=== PATIENT | male | born 1950 | race Caucasian/White ===

== ENCOUNTER 2021-10-23 09:32 | Inpatient (IN) | payer BC ==
[~2021-10-23] VITALS: Ht 175.3 cm; Wt 95.3 kg
[2021-10-23 09:36] VITALS: BP_SYST 104
[2021-10-23 10:27] LABS: BILIRUBIN,URINE NEGATIVE (NEGATIVE); BLOOD, URINE NEGATIVE (NEGATIVE); CLARITY/URINE CLEAR (CLEAR); COLOR,URINE YELLOW (YELLOW); GLUCOSE,URINE NEGATIVE (NEGATIVE); KETONES,URINE NEGATIVE (NEGATIVE); LEUKOCYTE ESTERASE ,URINE NEGATIVE (NEGATIVE); NITRITE, URINE NEGATIVE (NEGATIVE); PH,URINE 5.5 (5.0-8.0); PROTEIN URINE NEGATIVE (NEGATIVE); UROBILINOGEN,URINE 0.2 (0.2-1.0)
[2021-10-23 10:32] LABS: CALCIUM 9.3 mg/dL (8.4-11.0); CHLORIDE 86 mmol/L (98-107); CREATININE 0.93 mg/dL (0.55-1.30); GLUCOSE 99 mg/dL (70-99); SODIUM SERUM 138 mmol/L (136-145); UREA NITROGEN, BLOOD 19 mg/dL (8-21)
[2021-10-23 10:40] LABS: BARBITURATE, URINE NEGATIVE (NEG <=200); BENZODIAZEPINE, URINE POSITIVE (NEG <=150); CANNABINOID, URINE NEGATIVE (NEG <=50); COCAINE, URINE NEGATIVE (NEG <=150); METHAMPHETAMINES SCREEN,URINE NEGATIVE (NEG <=500); OPIATE, URINE NEGATIVE (NEG <=100); PHENCYCLIDINE SCREEN,URINE NEGATIVE (NEG <=25); UR TRICYCLIC ANTIDEPRESSANTS NEGATIVE (NEG <=300); URINE AMPHETAMINE NEGATIVE (NEG <=500); URINE METHADONE NEGATIVE (NEG <=200); URINE OXYCODONE SCREEN NEGATIVE (NEG <=100); URINE PROPOXYPHENE SCREEN NEGATIVE (NEG <=300)
[2021-10-23 10:42] LABS: BASOPHILS % (AUTO) 0.4 % (0.0-2.0); EOSINOPHILS # (AUTO) 0.1 K/uL (0.0-0.4); EOSINOPHILS % (AUTO) 1.3 % (0.0-4.0); HEMATOCRIT 31.5 % (36-54); HEMOGLOBIN 10.4 g/dL (14.0-18.0); LYMPHOCYTES # (AUTO) 1.6 K/uL (1.0-5.5); MEAN CORPUSCULAR HEMOGLOBIN 25 pg (27-31); MEAN CORPUSCULAR HGB CONC 33 % (32-36); MEAN CORPUSCULAR VOLUME 77 fL (79.0-98.0); MONOCYTES # (AUTO) 0.5 K/uL (0.0-1.0); MONOCYTES % (AUTO) 4.9 % (1.7-9.3); NEUTROPHILS # (AUTO) 7.4 K/uL (1.8-7.7); NEUTROPHILS % (AUTO) 76.4 % (40.0-70.0); PLATELET COUNT (AUTO) 366 K/uL (130-430); RED CELL DISTRIBUTION WIDTH 19.1 % (9.0-15.0); WHITE BLOOD COUNT (AUTO) 9.7 K/uL (4.8-10.8)
[2021-10-23 10:44] LABS: ALANINE AMINOTRANSFERASE 12 U/L (12-78); ASPARTATE AMINOTRANSFERASE 20 U/L (10-37); TOTAL BILIRUBIN 0.5 mg/dL (0.0-1.0)
[2021-10-23 10:49] LABS: ANION GAP -4 (5-15); GFR AFRICAN AMERICAN 103 mL/min (>90); POTASSIUM 2.7 mmol/L (3.5-5.1)
[2021-10-23] MEDS ORDERED: POTASSIUM CHLORIDE 20 MEQ/PKT PACKET PO ONE (11:00)
[2021-10-23] MEDS ORDERED: FUROSEMIDE 40 MG/4 ML VIAL IVP ONE (12:00)
[2021-10-23] MEDS ORDERED: GABA800T PO (12:14)
[2021-10-23] MEDS ORDERED: DULO60CA42 PO (12:14)
[2021-10-23] MEDS ORDERED: ASPI-1155 PO (12:14)
[2021-10-23] MEDS ORDERED: AMLO5TAB4 PO (12:14)
[2021-10-23] MEDS ORDERED: BUME1TAB9 PO (12:14)
[2021-10-23] MEDS ORDERED: LIP40 PO (12:14)
[2021-10-23] MEDS ORDERED: [UNRECOGNIZED DRUG - CODE] PO (12:14)
[2021-10-23] MEDS ORDERED: DDA.1 PO (12:14)
[2021-10-23] MEDS ORDERED: CARV6.2554 PO (12:14)
[2021-10-23] MEDS ORDERED: MULT-1198 PO (12:14)
[2021-10-23 15:03] VITALS: BP_SYST 140
[2021-10-23 16:03] VITALS: BP_SYST 142
[2021-10-23 20:00] VITALS: BP_SYST 118
[2021-10-24] MEDS: FUROSEMIDE 20 MG/2 ML VIAL IVP SCH ×3 (05:24→21:58)
[2021-10-24 08:00] VITALS: BP_SYST 123
[2021-10-24] MEDS: DESMOPRESSIN 0.1 MG TAB (DDAVP) PO SCH ×2 (09:56→21:59)
[2021-10-24] MEDS: GABAPENTIN 400 MG CAPSULE PO SCH ×2 (09:57→21:59)
[2021-10-24] MEDS: amLODIPine BESYLATE 5 MG TABLET PO SCH (09:57)
[2021-10-24] MEDS: DULoxetine HCL 30 MG CAPSULE.DR (CYMBALTA) PO SCH (09:57)
[2021-10-24] MEDS: ATORVASTATIN 20 MG TABLET PO SCH (09:58)
[2021-10-24] MEDS: ASPIRIN 81 MG TAB.CHEW PO SCH (09:58)
[2021-10-24] MEDS: CARVEDILOL 6.25 MG TABLET (COREG) PO SCH (09:59)
[2021-10-24] MEDS: BUMETANIDE 1 MG TABLET PO SCH (10:00)
[2021-10-24] MEDS ORDERED: ALBUTEROL SULFATE 0.083% 2.5 MG/3 ML VIAL.NEB INH PRN (10:45)
[2021-10-24] MEDS ORDERED: LORazepam 2 MG/ML VIAL IVP PRN ×2 (10:45)
[2021-10-24] MEDS ORDERED: ONDANSETRON HCL 4 MG/2 ML VIAL IVP PRN ×2 (10:45)
[2021-10-24] MEDS ORDERED: IPRATROPIUM BROM 0.5 MG/2.5 ML VIAL.NEB (ATROVENT) INH PRN (10:45)
[2021-10-24 10:56] VITALS: BP_SYST 123
[2021-10-24 12:30] VITALS: BP_SYST 110
[2021-10-24] MEDS ORDERED: NORMAL SALINE 5 ML DISP.SYRIN IVF SCH (14:00)
[2021-10-24] MEDS: NORMAL SALINE 5 ML DISP.SYRIN IVF SCH ×2 (14:11→21:59)
[2021-10-24 16:08] VITALS: BP_SYST 123
[2021-10-24 20:00] VITALS: BP_SYST 132
[2021-10-25] MEDS: FUROSEMIDE 20 MG/2 ML VIAL IVP SCH ×2 (05:24→14:55)
[2021-10-25] MEDS: NORMAL SALINE 5 ML DISP.SYRIN IVF SCH ×3 (05:24→22:07)
[2021-10-25 08:00] VITALS: BP_SYST 102
[2021-10-25] MEDS: ASPIRIN 81 MG TAB.CHEW PO SCH (08:50)
[2021-10-25] MEDS: DESMOPRESSIN 0.1 MG TAB (DDAVP) PO SCH ×2 (08:50→20:46)
[2021-10-25] MEDS: CARVEDILOL 6.25 MG TABLET (COREG) PO SCH (08:50)
[2021-10-25] MEDS: GABAPENTIN 400 MG CAPSULE PO SCH ×2 (08:51→20:46)
[2021-10-25] MEDS: BUMETANIDE 1 MG TABLET PO SCH (08:51)
[2021-10-25] MEDS: amLODIPine BESYLATE 5 MG TABLET PO SCH (08:51)
[2021-10-25] MEDS: DULoxetine HCL 30 MG CAPSULE.DR (CYMBALTA) PO SCH (08:51)
[2021-10-25] MEDS: ATORVASTATIN 20 MG TABLET PO SCH (09:03)
[2021-10-25 09:18] LABS: ALBUMIN 1.9 g/dL (3.4-4.8); CALCIUM 9.1 mg/dL (8.4-11.0); CREATININE 0.81 mg/dL (0.55-1.30); PHOSPHORUS 3.5 mg/dL (2.7-4.5); TOTAL BILIRUBIN 0.3 mg/dL (0.0-1.0)
[2021-10-25 09:23] LABS: BASOPHILS % (AUTO) 0.2 % (0.0-2.0); EOSINOPHILS # (AUTO) 0.1 K/uL (0.0-0.4); EOSINOPHILS % (AUTO) 0.9 % (0.0-4.0); HEMATOCRIT 32.3 % (36-54); HEMOGLOBIN 10.5 g/dL (14.0-18.0); LYMPHOCYTES # (AUTO) 1.7 K/uL (1.0-5.5); LYMPHOCYTES % (AUTO) 17.6 % (20.5-51.5); MEAN CORPUSCULAR HEMOGLOBIN 25 pg (27-31); MEAN CORPUSCULAR HGB CONC 33 % (32-36); MEAN CORPUSCULAR VOLUME 78 fL (79.0-98.0); MONOCYTES # (AUTO) 0.7 K/uL (0.0-1.0); MONOCYTES % (AUTO) 6.9 % (1.7-9.3); NEUTROPHILS # (AUTO) 7.1 K/uL (1.8-7.7); NEUTROPHILS % (AUTO) 74.4 % (40.0-70.0); PLATELET COUNT (AUTO) 375 K/uL (130-430); RED BLOOD CELL COUNT(AUTO) 4.15 MIL/uL (4.2-6.2); RED CELL DISTRIBUTION WIDTH 19.3 % (9.0-15.0); WHITE BLOOD COUNT (AUTO) 9.6 K/uL (4.8-10.8)
[2021-10-25 09:33] LABS: POTASSIUM 1.9 mmol/L (3.5-5.1)
[2021-10-25] MEDS ORDERED: KCL 40 mEq in 100 mL (PREMIX) 100 ML IV ONE ×2 (10:15→20:30)
[2021-10-25] MEDS ORDERED: POTASSIUM CHLORIDE 40 MEQ in NS 250 ML IV ONE (11:00)
[2021-10-25 12:00] VITALS: BP_SYST 107
[2021-10-25 16:00] VITALS: BP_SYST 126
[2021-10-25] MEDS ORDERED: POTASSIUM CHLORIDE 20 MEQ/PKT PACKET PO ONE (16:45)
[2021-10-25 19:29] LABS: CALCIUM 8.6 mg/dL (8.4-11.0); CHLORIDE 87 mmol/L (98-107); CREATININE 0.98 mg/dL (0.55-1.30); GLUCOSE 118 mg/dL (70-99); SODIUM SERUM 137 mmol/L (136-145); UREA NITROGEN, BLOOD 17 mg/dL (8-21)
[2021-10-25 19:33] LABS: GFR AFRICAN AMERICAN 97 mL/min (>90)
[2021-10-25 19:37] LABS: POTASSIUM 2.8 mmol/L (3.5-5.1)
[2021-10-25 19:38] LABS: ANION GAP < 3 (5-15)
[2021-10-25 20:00] VITALS: BP_SYST 123
[2021-10-26] VITALS: BP_SYST 123
[2021-10-26] MEDS: NORMAL SALINE 5 ML DISP.SYRIN IVF SCH ×3 (05:10→21:00)
[2021-10-26 07:35] LABS: BASOPHILS # (AUTO) 0.2 K/uL (0.0-0.2); BASOPHILS % (AUTO) 2.3 % (0.0-2.0); EOSINOPHILS # (AUTO) 0.1 K/uL (0.0-0.4); EOSINOPHILS % (AUTO) 1.3 % (0.0-4.0); HEMATOCRIT 32.4 % (36-54); HEMOGLOBIN 10.6 g/dL (14.0-18.0); LYMPHOCYTES # (AUTO) 2.1 K/uL (1.0-5.5); LYMPHOCYTES % (AUTO) 20.3 % (20.5-51.5); MEAN CORPUSCULAR HEMOGLOBIN 25 pg (27-31); MEAN CORPUSCULAR HGB CONC 33 % (32-36); MEAN CORPUSCULAR VOLUME 77 fL (79.0-98.0); MONOCYTES # (AUTO) 0.4 K/uL (0.0-1.0); MONOCYTES % (AUTO) 4.3 % (1.7-9.3); NEUTROPHILS # (AUTO) 7.5 K/uL (1.8-7.7); NEUTROPHILS % (AUTO) 71.8 % (40.0-70.0); PLATELET COUNT (AUTO) 373 K/uL (130-430); RED BLOOD CELL COUNT(AUTO) 4.24 MIL/uL (4.2-6.2); RED CELL DISTRIBUTION WIDTH 19.4 % (9.0-15.0); WHITE BLOOD COUNT (AUTO) 10.4 K/uL (4.8-10.8)
[2021-10-26 08:00] VITALS: BP_SYST 112
[2021-10-26 08:12] LABS: CALCIUM 8.8 mg/dL (8.4-11.0); CREATININE 0.85 mg/dL (0.55-1.30); PHOSPHORUS 3.5 mg/dL (2.7-4.5)
[2021-10-26] MEDS ORDERED: FUROSEMIDE 20 MG/2 ML VIAL IVP SCH (09:00)
[2021-10-26 09:36] LABS: POTASSIUM 2.5 mmol/L (3.5-5.1)
[2021-10-26] MEDS: DESMOPRESSIN 0.1 MG TAB (DDAVP) PO SCH ×2 (09:55→20:33)
[2021-10-26] MEDS: amLODIPine BESYLATE 5 MG TABLET PO SCH (10:05)
[2021-10-26] MEDS: CARVEDILOL 6.25 MG TABLET (COREG) PO SCH (10:06)
[2021-10-26] MEDS: ASPIRIN 81 MG TAB.CHEW PO SCH (10:06)
[2021-10-26] MEDS: GABAPENTIN 400 MG CAPSULE PO SCH ×2 (10:06→20:33)
[2021-10-26] MEDS: DULoxetine HCL 30 MG CAPSULE.DR (CYMBALTA) PO SCH (10:07)
[2021-10-26] MEDS: ATORVASTATIN 20 MG TABLET PO SCH (10:07)
[2021-10-26] MEDS ORDERED: POTASSIUM CHLORIDE 40 MEQ in NS 250 ML IV ONE (10:30)
[2021-10-26 12:00] VITALS: BP_SYST 138
[2021-10-26 16:00] VITALS: BP_SYST 126
[2021-10-26 20:00] VITALS: BP_SYST 146
[2021-10-26] MEDS ORDERED: POTASSIUM CHLORIDE 20 MEQ TAB.PRT.SR PO ONE (20:00)
[2021-10-27] VITALS: BP_SYST 129
[2021-10-27] MEDS: NORMAL SALINE 5 ML DISP.SYRIN IVF SCH ×3 (05:03→22:10)
[2021-10-27 07:00] VITALS: BP_SYST 133
[2021-10-27 07:54] LABS: CALCIUM 8.7 mg/dL (8.4-11.0); CREATININE 0.86 mg/dL (0.55-1.30)
[2021-10-27 08:23] LABS: POTASSIUM 2.6 mmol/L (3.5-5.1)
[2021-10-27 08:25] VITALS: BP_SYST 129
[2021-10-27] MEDS: ASPIRIN 81 MG TAB.CHEW PO SCH (08:37)
[2021-10-27] MEDS: DULoxetine HCL 30 MG CAPSULE.DR (CYMBALTA) PO SCH (08:37)
[2021-10-27] MEDS: ATORVASTATIN 20 MG TABLET PO SCH (08:38)
[2021-10-27] MEDS: GABAPENTIN 400 MG CAPSULE PO SCH ×2 (08:38→22:09)
[2021-10-27] MEDS: DESMOPRESSIN 0.1 MG TAB (DDAVP) PO SCH ×2 (08:38→22:09)
[2021-10-27] MEDS: amLODIPine BESYLATE 5 MG TABLET PO SCH (08:38)
[2021-10-27] MEDS: CARVEDILOL 6.25 MG TABLET (COREG) PO SCH (08:45)
[2021-10-27 09:16] LABS: BASOPHILS % (AUTO) 0.4 % (0.0-2.0); EOSINOPHILS # (AUTO) 0.1 K/uL (0.0-0.4); EOSINOPHILS % (AUTO) 1.1 % (0.0-4.0); HEMATOCRIT 30.3 % (36-54); HEMOGLOBIN 10.1 g/dL (14.0-18.0); LYMPHOCYTES # (AUTO) 1.9 K/uL (1.0-5.5); LYMPHOCYTES % (AUTO) 19.8 % (20.5-51.5); MEAN CORPUSCULAR HEMOGLOBIN 26 pg (27-31); MEAN CORPUSCULAR HGB CONC 33 % (32-36); MEAN CORPUSCULAR VOLUME 78 fL (79.0-98.0); MONOCYTES # (AUTO) 0.5 K/uL (0.0-1.0); MONOCYTES % (AUTO) 4.7 % (1.7-9.3); NEUTROPHILS # (AUTO) 7.1 K/uL (1.8-7.7); PLATELET COUNT (AUTO) 346 K/uL (130-430); RED BLOOD CELL COUNT(AUTO) 3.89 MIL/uL (4.2-6.2); RED CELL DISTRIBUTION WIDTH 19.6 % (9.0-15.0); WHITE BLOOD COUNT (AUTO) 9.6 K/uL (4.8-10.8)
[2021-10-27 09:49] VITALS: BP_SYST 133
[2021-10-27] MEDS ORDERED: POTASSIUM CHLORIDE 40 MEQ in NS 250 ML IV ONE (11:00)
[2021-10-27 16:49] LABS: CHLORIDE,URINE RANDOM 29 mmol/L (55-125); POTASSIUM,URINE RANDOM 71 mmol/L (12-75); URINE SODIUM, RANDOM 23 mmol/L (40-220)
[2021-10-27 20:00] VITALS: BP_SYST 141
[2021-10-27] MEDS ORDERED: KCL 40 mEq in 100 mL (PREMIX) 100 ML IV ONE ×2 (21:00→22:52)
[2021-10-27] MEDS: POTASSIUM CHLORIDE 20 MEQ TAB.PRT.SR PO SCH (22:10)
[2021-10-28 06:52] LABS: BASOPHILS % (AUTO) 0.5 % (0.0-2.0); EOSINOPHILS # (AUTO) 0.1 K/uL (0.0-0.4); EOSINOPHILS % (AUTO) 0.9 % (0.0-4.0); HEMATOCRIT 29.9 % (36-54); HEMOGLOBIN 9.7 g/dL (14.0-18.0); LYMPHOCYTES # (AUTO) 1.7 K/uL (1.0-5.5); LYMPHOCYTES % (AUTO) 16.8 % (20.5-51.5); MEAN CORPUSCULAR HEMOGLOBIN 25 pg (27-31); MEAN CORPUSCULAR HGB CONC 33 % (32-36); MEAN CORPUSCULAR VOLUME 76 fL (79.0-98.0); MONOCYTES # (AUTO) 0.4 K/uL (0.0-1.0); MONOCYTES % (AUTO) 4.2 % (1.7-9.3); NEUTROPHILS # (AUTO) 7.7 K/uL (1.8-7.7); NEUTROPHILS % (AUTO) 77.6 % (40.0-70.0); PLATELET COUNT (AUTO) 356 K/uL (130-430); RED BLOOD CELL COUNT(AUTO) 3.91 MIL/uL (4.2-6.2); RED CELL DISTRIBUTION WIDTH 19.5 % (9.0-15.0); WHITE BLOOD COUNT (AUTO) 9.9 K/uL (4.8-10.8)
[2021-10-28 07:07] LABS: ALBUMIN 1.8 g/dL (3.4-4.8); CALCIUM 8.5 mg/dL (8.4-11.0); CREATININE 0.81 mg/dL (0.55-1.30); PHOSPHORUS 2.9 mg/dL (2.7-4.5); POTASSIUM 3.4 mmol/L (3.5-5.1); TOTAL BILIRUBIN 0.2 mg/dL (0.0-1.0)
[2021-10-28 07:40] VITALS: BP_SYST 109
[2021-10-28] MEDS: POTASSIUM CHLORIDE 20 MEQ TAB.PRT.SR PO SCH (08:48)
[2021-10-28] MEDS: DULoxetine HCL 30 MG CAPSULE.DR (CYMBALTA) PO SCH (08:49)
[2021-10-28] MEDS: ASPIRIN 81 MG TAB.CHEW PO SCH (08:50)
[2021-10-28] MEDS: ATORVASTATIN 20 MG TABLET PO SCH (08:50)
[2021-10-28] MEDS: GABAPENTIN 400 MG CAPSULE PO SCH ×2 (08:50→21:13)
[2021-10-28] MEDS: CARVEDILOL 6.25 MG TABLET (COREG) PO SCH (08:51)
[2021-10-28] MEDS: amLODIPine BESYLATE 5 MG TABLET PO SCH (08:51)
[2021-10-28] MEDS: DESMOPRESSIN 0.1 MG TAB (DDAVP) PO SCH ×2 (08:55→21:00)
[2021-10-28] MEDS ORDERED: SPIRONOLACTONE 25 MG TABLET (ALDACTONE) PO ONE (09:15)
[2021-10-28 12:05] VITALS: BP_SYST 118
[2021-10-28] MEDS: NORMAL SALINE 5 ML DISP.SYRIN IVF SCH ×3 (14:00→21:18)
[2021-10-28 16:08] VITALS: BP_SYST 128
[2021-10-28 20:00] VITALS: BP_SYST 125
[2021-10-28 20:51] LABS: POTASSIUM 3.2 mmol/L (3.5-5.1)
[2021-10-28 20:52] LABS: CALCIUM 8.6 mg/dL (8.4-11.0)
[2021-10-28 20:53] LABS: CREATININE 0.89 mg/dL (0.55-1.30)
[2021-10-28] MEDS ORDERED: POTASSIUM CHLORIDE 20 MEQ/PKT PACKET PO ONE (22:30)
[2021-10-29] VITALS: BP_SYST 125
[2021-10-29] MEDS: NORMAL SALINE 5 ML DISP.SYRIN IVF SCH ×2 (06:00→14:02)
[2021-10-29 06:16] LABS: BASOPHILS # (AUTO) 0.1 K/uL (0.0-0.2); BASOPHILS % (AUTO) 0.5 % (0.0-2.0); EOSINOPHILS # (AUTO) 0.1 K/uL (0.0-0.4); EOSINOPHILS % (AUTO) 1.3 % (0.0-4.0); HEMATOCRIT 29.7 % (36-54); HEMOGLOBIN 9.7 g/dL (14.0-18.0); LYMPHOCYTES # (AUTO) 1.8 K/uL (1.0-5.5); LYMPHOCYTES % (AUTO) 16.8 % (20.5-51.5); MEAN CORPUSCULAR HEMOGLOBIN 25 pg (27-31); MEAN CORPUSCULAR HGB CONC 33 % (32-36); MEAN CORPUSCULAR VOLUME 77 fL (79.0-98.0); MONOCYTES # (AUTO) 0.4 K/uL (0.0-1.0); MONOCYTES % (AUTO) 3.9 % (1.7-9.3); NEUTROPHILS # (AUTO) 8.1 K/uL (1.8-7.7); NEUTROPHILS % (AUTO) 77.5 % (40.0-70.0); PLATELET COUNT (AUTO) 366 K/uL (130-430); RED BLOOD CELL COUNT(AUTO) 3.88 MIL/uL (4.2-6.2); RED CELL DISTRIBUTION WIDTH 19.5 % (9.0-15.0); WHITE BLOOD COUNT (AUTO) 10.4 K/uL (4.8-10.8)
[2021-10-29 06:41] LABS: CREATININE 0.7 mg/dL (0.55-1.30); PHOSPHORUS 3.6 mg/dL (2.7-4.5); POTASSIUM 3.1 mmol/L (3.5-5.1)
[2021-10-29 08:00] VITALS: BP_SYST 120
[2021-10-29] MEDS: ASPIRIN 81 MG TAB.CHEW PO SCH (08:27)
[2021-10-29] MEDS: GABAPENTIN 400 MG CAPSULE PO SCH ×2 (08:27→20:46)
[2021-10-29] MEDS: SPIRONOLACTONE 25 MG TABLET (ALDACTONE) PO SCH (08:28)
[2021-10-29] MEDS: DULoxetine HCL 30 MG CAPSULE.DR (CYMBALTA) PO SCH (08:28)
[2021-10-29] MEDS: POTASSIUM CHLORIDE 20 MEQ TAB.PRT.SR PO SCH (08:28)
[2021-10-29] MEDS: ATORVASTATIN 20 MG TABLET PO SCH (08:29)
[2021-10-29] MEDS: CARVEDILOL 6.25 MG TABLET (COREG) PO SCH (08:29)
[2021-10-29] MEDS: DESMOPRESSIN 0.1 MG TAB (DDAVP) PO SCH ×2 (08:30→20:46)
[2021-10-29] MEDS ORDERED: POTASSIUM CHLORIDE 20 MEQ TAB.PRT.SR PO ONE (09:00)
[2021-10-29] MEDS ORDERED: KCL 40 mEq in 100 mL (PREMIX) 100 ML IV ONE (10:45)
[2021-10-29 12:00] VITALS: BP_SYST 112
[2021-10-29] MEDS: POTASSIUM CHLORIDE 20 mEq in 100 mL (PREMIX) 100 ML x 2 doses IV SCH ×2 (12:16→14:31)
[2021-10-29 16:00] VITALS: BP_SYST 121
[2021-10-29 20:00] VITALS: BP_SYST 139
[2021-10-30 07:43] LABS: ALBUMIN 1.9 g/dL (3.4-4.8); CREATININE 0.67 mg/dL (0.55-1.30); PHOSPHORUS 3.1 mg/dL (2.7-4.5); POTASSIUM 3.6 mmol/L (3.5-5.1); TOTAL BILIRUBIN 0.2 mg/dL (0.0-1.0)
[2021-10-30 07:59] LABS: BASOPHILS # (AUTO) 0.1 K/uL (0.0-0.2); BASOPHILS % (AUTO) 0.9 % (0.0-2.0); EOSINOPHILS # (AUTO) 0.1 K/uL (0.0-0.4); EOSINOPHILS % (AUTO) 1.1 % (0.0-4.0); HEMATOCRIT 30.7 % (36-54); LYMPHOCYTES # (AUTO) 1.7 K/uL (1.0-5.5); LYMPHOCYTES % (AUTO) 17.6 % (20.5-51.5); MEAN CORPUSCULAR HEMOGLOBIN 25 pg (27-31); MEAN CORPUSCULAR HGB CONC 33 % (32-36); MEAN CORPUSCULAR VOLUME 78 fL (79.0-98.0); MONOCYTES # (AUTO) 0.4 K/uL (0.0-1.0); MONOCYTES % (AUTO) 4.6 % (1.7-9.3); NEUTROPHILS # (AUTO) 7.2 K/uL (1.8-7.7); NEUTROPHILS % (AUTO) 75.8 % (40.0-70.0); PLATELET COUNT (AUTO) 379 K/uL (130-430); RED BLOOD CELL COUNT(AUTO) 3.95 MIL/uL (4.2-6.2); RED CELL DISTRIBUTION WIDTH 20.1 % (9.0-15.0); WHITE BLOOD COUNT (AUTO) 9.5 K/uL (4.8-10.8)
[2021-10-30] MEDS: ASPIRIN 81 MG TAB.CHEW PO SCH (09:07)
[2021-10-30] MEDS: DESMOPRESSIN 0.1 MG TAB (DDAVP) PO SCH ×2 (09:07→21:26)
[2021-10-30] MEDS: DULoxetine HCL 30 MG CAPSULE.DR (CYMBALTA) PO SCH (09:08)
[2021-10-30] MEDS: ATORVASTATIN 20 MG TABLET PO SCH (09:08)
[2021-10-30] MEDS: SPIRONOLACTONE 25 MG TABLET (ALDACTONE) PO SCH (09:09)
[2021-10-30] MEDS: CARVEDILOL 6.25 MG TABLET (COREG) PO SCH (09:09)
[2021-10-30] MEDS: POTASSIUM CHLORIDE 20 MEQ TAB.PRT.SR PO SCH (09:09)
[2021-10-30] MEDS: GABAPENTIN 400 MG CAPSULE PO SCH ×2 (09:09→21:26)
[2021-10-30] MEDS ORDERED: SPIR25TA PO (09:24)
[2021-10-30] MEDS ORDERED: DDA.1 PO (09:24)
[2021-10-30] MEDS ORDERED: POTA-197 PO ×2 (09:24)
[2021-10-30] MEDS ORDERED: GABA800T PO (09:24)
[2021-10-30 11:30] VITALS: BP_SYST 128
[2021-10-30] MEDS: NORMAL SALINE 5 ML DISP.SYRIN IVF SCH ×2 (14:00→21:26)
[2021-10-30 15:36] VITALS: BP_SYST 131
[2021-10-30 20:30] VITALS: BP_SYST 131
[2021-10-31 04:00] VITALS: BP_SYST 133
[2021-10-31] MEDS: NORMAL SALINE 5 ML DISP.SYRIN IVF SCH (06:09)
[2021-10-31 06:42] LABS: BASOPHILS % (AUTO) 0.3 % (0.0-2.0); EOSINOPHILS # (AUTO) 0.1 K/uL (0.0-0.4); EOSINOPHILS % (AUTO) 1.3 % (0.0-4.0); HEMATOCRIT 29.3 % (36-54); HEMOGLOBIN 9.6 g/dL (14.0-18.0); LYMPHOCYTES # (AUTO) 1.6 K/uL (1.0-5.5); MEAN CORPUSCULAR HEMOGLOBIN 25 pg (27-31); MEAN CORPUSCULAR HGB CONC 33 % (32-36); MEAN CORPUSCULAR VOLUME 77 fL (79.0-98.0); MONOCYTES # (AUTO) 0.5 K/uL (0.0-1.0); MONOCYTES % (AUTO) 5.1 % (1.7-9.3); NEUTROPHILS # (AUTO) 7.6 K/uL (1.8-7.7); NEUTROPHILS % (AUTO) 77.3 % (40.0-70.0); PLATELET COUNT (AUTO) 369 K/uL (130-430); RED BLOOD CELL COUNT(AUTO) 3.82 MIL/uL (4.2-6.2); RED CELL DISTRIBUTION WIDTH 19.8 % (9.0-15.0); WHITE BLOOD COUNT (AUTO) 9.8 K/uL (4.8-10.8)
[2021-10-31 08:29] LABS: CALCIUM 8.1 mg/dL (8.4-11.0); CHLORIDE 97 mmol/L (98-107); CREATININE 0.67 mg/dL (0.55-1.30); GLUCOSE 83 mg/dL (70-99); PHOSPHORUS 3.6 mg/dL (2.7-4.5); POTASSIUM 3.8 mmol/L (3.5-5.1); UREA NITROGEN, BLOOD 14 mg/dL (8-21)
[2021-10-31 08:50] LABS: SODIUM SERUM 137 mmol/L (136-145)
[2021-10-31] MEDS: ATORVASTATIN 20 MG TABLET PO SCH (08:51)
[2021-10-31] MEDS: ASPIRIN 81 MG TAB.CHEW PO SCH (08:52)
[2021-10-31] MEDS: CARVEDILOL 6.25 MG TABLET (COREG) PO SCH (08:52)
[2021-10-31] MEDS: GABAPENTIN 400 MG CAPSULE PO SCH (08:53)
[2021-10-31] MEDS: SPIRONOLACTONE 25 MG TABLET (ALDACTONE) PO SCH (08:53)
[2021-10-31] MEDS: POTASSIUM CHLORIDE 20 MEQ TAB.PRT.SR PO SCH (08:54)
[2021-10-31] MEDS: DULoxetine HCL 30 MG CAPSULE.DR (CYMBALTA) PO SCH (08:54)
[2021-10-31 09:00] LABS: GFR AFRICAN AMERICAN 151 mL/min (>90)
[2021-10-31] MEDS: DESMOPRESSIN 0.1 MG TAB (DDAVP) PO SCH (09:00)
[2021-10-31 09:01] LABS: ANION GAP < 3 (5-15)
[2021-10-31] MEDS ORDERED: [UNRECOGNIZED DRUG - CODE] PO (09:28)
== END 2021-10-31 11:50 | disposition home or self-care (01) | DRG 640 ==
LOC: SED 09:32 → STU 12:05
PROVIDERS: ADMIT Preventive Medicine Preventive Medicine/Occupational Environmental Medicine; ATTEND Preventive Medicine Preventive Medicine/Occupational Environmental Medicine
DX: E87.6 Hypokalemia (principal); E43 Unspecified severe protein-calorie malnutrition; J96.20 Acute and chronic respiratory failure, unspecified whether with hypoxia or hypercapnia; G45.9 Transient cerebral ischemic attack, unspecified; R06.89 Other abnormalities of breathing; E87.1 Hypo-osmolality and hyponatremia; E87.4 Mixed disorder of acid-base balance; E87.3 Alkalosis; E83.51 Hypocalcemia; I50.9 Heart failure, unspecified; D64.9 Anemia, unspecified; E83.41 Hypermagnesemia; E88.09 Other disorders of plasma-protein metabolism, not elsewhere classified; I25.10 Atherosclerotic heart disease of native coronary artery without angina pectoris; Z20.822 Contact with and (suspected) exposure to COVID-19; I73.9 Peripheral vascular disease, unspecified; Z86.73 Personal history of transient ischemic attack (TIA), and cerebral infarction without residual deficits; Z88.5 Allergy status to narcotic agent; Z88.8 Allergy status to other drugs, medicaments and biological substances; Z68.31 Body mass index [BMI] 31.0-31.9, adult
CPT/HCPCS: 36415; 36600; 70450-TC; 71045; 76376; 80048; 80053; 80307; 81003; 82088; 82140; 82435; 82533; 82803-TC; 82962; 83605; 83735; 83880; 84100; 84244; 84302; 84484; 84999; 85025; 87040; 87086; 93005; 93306; 93880; 96374; 99285; G0378; J1940; J3480; J7050

== ENCOUNTER 2022-07-11 05:35 | Day surgery (SDC) | payer BC ==
[~2022-07-11] VITALS: Ht 180.3 cm; Wt 88.0 kg
[~2022-07-11 05:35] MED LIST: ASPI-1155 PO; CARV6.2554 PO; DDA.1 PO; DULO60CA42 PO; GABA800T PO; LIP40 PO; MULT-1198 PO; POTA-195 PO; SPIR25TA PO
[2022-07-11] MEDS: MIDAZOLAM HCL 5 MG/5 ML VIAL ONE ×5 (08:44→08:58)
[2022-07-11] MEDS: fentaNYL CITRATE/PF 100 MCG/2 ML AMP ONE ×4 (08:44→08:53)
[2022-07-11 11:48] VITALS: BP_SYST 130
== END 2022-07-11 10:46 | disposition home or self-care (01) ==
LOC: SDS 05:35
PROVIDERS: ATTEND Internal Medicine Gastroenterology
DX: Z12.11 Encounter for screening for malignant neoplasm of colon (principal); K63.5 Polyp of colon; K57.30 Diverticulosis of large intestine without perforation or abscess without bleeding; K64.9 Unspecified hemorrhoids; Z20.822 Contact with and (suspected) exposure to COVID-19; E11.9 Type 2 diabetes mellitus without complications; E78.5 Hyperlipidemia, unspecified; Z88.5 Allergy status to narcotic agent; Z88.8 Allergy status to other drugs, medicaments and biological substances; Z79.899 Other long term (current) drug therapy
CPT/HCPCS: 45385; 96365; 87426; 36415; 88305; G0378; J2250; J3010; 45382